=== PATIENT | male | born 1980 | race African-American/Black ===

== ENCOUNTER 2017-05-10 13:16 | Emergency (ER) | payer MEDICAID ==
[~2017-05-10] VITALS: Ht 172.7 cm; Wt 73.0 kg
[~2017-05-10 13:16] MED LIST: AMLO5TAB88; CARB200C; CARB200T PO; NASOI
[2017-05-10 18:24] VITALS: BP 134/93
== END 2017-05-10 18:30 | disposition home or self-care (01) ==
LOC: ER 13:47
DX: J06.9 Acute upper respiratory infection, unspecified (principal); I10 Essential (primary) hypertension; G40.909 Epilepsy, unspecified, not intractable, without status epilepticus; Z88.1 Allergy status to other antibiotic agents; Z88.5 Allergy status to narcotic agent; Z88.6 Allergy status to analgesic agent; Z79.899 Other long term (current) drug therapy
CPT/HCPCS: 87804; 99284

== ENCOUNTER 2018-05-29 08:15 | Emergency (ER) | payer MEDICAID, OTHER ==
[~2018-05-29] VITALS: Ht 172.7 cm; Wt 78.0 kg
[2018-05-29] MEDS ORDERED: ACETAMINOPHEN 325MG TABLET PO STA (08:54)
[2018-05-29 09:21] LABS: BASOPHILS % 0.8 % (0.0-2.0); EOSINOPHILS % 4.6 % (0.0-5.0); HEMATOCRIT. 42.4 % (42.0-52.0); HEMOGLOBIN. 14.4 g/dL (14.0-18.0); LYMPHOCYTES % 19.9 % (20.0-50.0); MEAN CORPUSCULAR HEMOGLOBIN 28.7 pg (28.0-32.0); MEAN CORPUSCULAR VOLUME 84.7 fL (80.0-94.0); MEAN PLATELET VOLUME 8.4 fl (7.4-10.4); MONOCYTES % 8.8 % (2.0-8.0); NEUTROPHILS % 65.9 % (40.0-76.0); PLATELET 224 x1000/uL (130-400); RED BLOOD CELL COUNT 5.01 mill/uL (4.7-6.1); RED CELL DISTRIBUTION WIDTH 13.5 % (11.6-14.6)
[2018-05-29 09:22] LABS: CHLORIDE 102 mEq/L (98-107)
[2018-05-29 09:46] LABS: CLARITY URINE CLEAR (CLEAR); COLOR URINE YELLOW (YELLOW); KETONES URINE NEGATIVE (NEGATIVE); LEUKOCYTE ESTERASE URINE NEGATIVE (NEGATIVE); NITRITE URINE NEGATIVE (NEGATIVE); OCCULT BLOOD URINE NEGATIVE (NEGATIVE); PROTEIN URINE NEGATIVE (NEGATIVE); SPECIFIC GRAVITY URINE 1.013 (1.005-1.030); UROBILINOGEN URINE 0.2 E.U./dL (0.2-1.0)
[2018-05-29 10:54] VITALS: BP 125/89
== END 2018-05-29 10:57 | disposition home or self-care (01) ==
LOC: ER 08:15
DX: R06.02 Shortness of breath (principal); I10 Essential (primary) hypertension; G40.909 Epilepsy, unspecified, not intractable, without status epilepticus; R94.31 Abnormal electrocardiogram [ECG] [EKG]; F79 Unspecified intellectual disabilities; Z88.5 Allergy status to narcotic agent; Z88.6 Allergy status to analgesic agent; Z88.3 Allergy status to other anti-infective agents
CPT/HCPCS: 36415; 71045; 83880; 84484; 93005; 99284

== ENCOUNTER 2018-09-30 20:28 | Emergency (ER) | payer MEDICAID ==
[~2018-09-30] VITALS: Ht 172.7 cm; Wt 71.0 kg
[2018-10-01] MEDS ORDERED: ACETAMINOPHEN 325MG TABLET PO ONE (02:30)
[2018-10-01 02:37] LABS: CLARITY URINE CLEAR (CLEAR); COLOR URINE YELLOW (YELLOW); KETONES URINE NEGATIVE (NEGATIVE); LEUKOCYTE ESTERASE URINE NEGATIVE (NEGATIVE); NITRITE URINE NEGATIVE (NEGATIVE); OCCULT BLOOD URINE NEGATIVE (NEGATIVE); PH URINE 7.5 (4.5-8.0); PROTEIN URINE NEGATIVE (NEGATIVE); SPECIFIC GRAVITY URINE 1.013 (1.005-1.030)
[2018-10-01 02:50] LABS: BASOPHILS % 0.3 % (0.0-2.0); EOSINOPHILS % 4.3 % (0.0-5.0); HEMATOCRIT. 40.2 % (42.0-52.0); HEMOGLOBIN. 13.5 g/dL (14.0-18.0); LYMPHOCYTES % 15.6 % (20.0-50.0); MEAN CORPUSCULAR HEMOGLOBIN 28.7 pg (28.0-32.0); MEAN CORPUSCULAR VOLUME 85.3 fL (80.0-94.0); MEAN PLATELET VOLUME 8.4 fl (7.4-10.4); MONOCYTES % 6.2 % (2.0-8.0); NEUTROPHILS % 73.6 % (40.0-76.0); PLATELET 219 x1000/uL (130-400); RED BLOOD CELL COUNT 4.71 mill/uL (4.7-6.1); RED CELL DISTRIBUTION WIDTH 13.1 % (11.6-14.6)
[2018-10-01 02:54] LABS: CHLORIDE 103 mEq/L (98-107)
[2018-10-01 03:02] LABS: CARBAMAZEPINE 12.3 ug/mL (4-12)
[2018-10-01 04:10] VITALS: BP 119/89
== END 2018-10-01 04:14 | disposition home or self-care (01) ==
LOC: ER 20:28
DX: R10.9 Unspecified abdominal pain (principal); R89.2 Abnormal level of other drugs, medicaments and biological substances in specimens from other organs, systems and tissues; I10 Essential (primary) hypertension; Z88.6 Allergy status to analgesic agent; Z88.5 Allergy status to narcotic agent; Z79.899 Other long term (current) drug therapy
CPT/HCPCS: 36415; 80156; 99283

== ENCOUNTER 2018-10-01 12:27 | Emergency (ER) | payer MEDICAID ==
[~2018-10-01] VITALS: Ht 180.3 cm; Wt 78.0 kg
[2018-10-01 13:14] VITALS: BP 154/104
== END 2018-10-01 16:15 | disposition left against medical advice (07) ==
LOC: ER 12:41
DX: R11.0 Nausea (principal); Z53.21 Procedure and treatment not carried out due to patient leaving prior to being seen by health care provider

== ENCOUNTER 2021-08-16 16:54 | Emergency (ER) | payer MEDICAID ==
[~2021-08-16] VITALS: Ht 172.7 cm; Wt 74.0 kg
[2021-08-16] MEDS ORDERED: OXYM30SP26 BOTHNSTRLS (18:49)
[2021-08-16 19:04] VITALS: BP 141/67
== END 2021-08-16 19:05 | disposition home or self-care (01) ==
LOC: ER 16:54
DX: J06.9 Acute upper respiratory infection, unspecified (principal); I10 Essential (primary) hypertension; Z98.890 Other specified postprocedural states; Z20.822 Contact with and (suspected) exposure to COVID-19
CPT/HCPCS: 82962; 87426; 87804; 99283

== ENCOUNTER 2022-07-30 11:37 | Emergency (ER) | payer MEDICAID, OTHER ==
[~2022-07-30] VITALS: Ht 172.7 cm; Wt 88.0 kg
[~2022-07-30 11:37] MED LIST changes: +OXYM30SP26 BOTHNSTRLS
[2022-07-30 11:43] VITALS: BP 162/91
[2022-07-30] MEDS ORDERED: TETRACAINE 0.5% OPHTH DROPS 4ML LEFTEYE ONE (12:30)
[2022-07-30] MEDS ORDERED: FLUORESCEIN SODIUM 1MG/STRIP LEFTEYE ONE (12:30)
[2022-07-30] MEDS ORDERED: FLUORESCEIN SODIUM 1MG/STRIP LEFTEYE NR (14:45)
[2022-07-30] MEDS ORDERED: TETRACAINE 0.5% OPHTH DROPS 4ML LEFTEYE NR (14:45)
[2022-07-30] MEDS ORDERED: CIPR3.5O LEFTEYE ×3 (16:33→16:38)
== END 2022-07-30 16:45 | disposition home or self-care (01) ==
LOC: ER 11:37
DX: H10.9 Unspecified conjunctivitis (principal)
CPT/HCPCS: 99283

== ENCOUNTER 2023-04-20 11:03 | Emergency (ER) | payer OTHER ==
[~2023-04-20] VITALS: Ht 170.2 cm; Wt 83.0 kg
[~2023-04-20 11:03] MED LIST changes: +CIPR3.5O LEFTEYE
[2023-04-20 11:19] VITALS: BP 149/96; PULSE 73; RESP 18; TEMP 98.3; O2SAT 98
[2023-04-20] MEDS ORDERED: BALANCED SALT IRRIG SOLN 15ML IR ONE (12:15)
[2023-04-20] MEDS ORDERED: FLUORESCEIN SODIUM 1MG/STRIP LEFTEYE ONE (12:15)
[2023-04-20] MEDS ORDERED: TETRACAINE 0.5% OPHTH DROPS 4ML LEFTEYE ONE (12:15)
[2023-04-21] MEDS ORDERED: IBUP-2030 MT (13:11)
[2023-04-21] MEDS ORDERED: OCUFLX EACHEYE (13:11)
[2023-04-21] MEDS ORDERED: VALA100044 MT (13:11)
== END 2023-04-20 16:39 | disposition left against medical advice (07) ==
LOC: ER 11:03
DX: L03.213 Periorbital cellulitis (principal); H10.32 Unspecified acute conjunctivitis, left eye; I10 Essential (primary) hypertension; Z88.5 Allergy status to narcotic agent; Z88.1 Allergy status to other antibiotic agents; Z88.8 Allergy status to other drugs, medicaments and biological substances; Z98.890 Other specified postprocedural states
CPT/HCPCS: 99281

== ENCOUNTER 2023-04-21 12:08 | Emergency (ER) | payer OTHER ==
[~2023-04-21] VITALS: Ht 172.7 cm; Wt 81.6 kg
[2023-04-21 12:15] VITALS: O2SAT 100
[2023-04-21] MEDS ORDERED: TETRACAINE 0.5% OPHTH DROPS 4ML BOTHEYE ONE (12:30)
[2023-04-21] MEDS ORDERED: FLUORESCEIN SODIUM 1MG/STRIP BOTHEYE ONE (12:30)
[2023-04-21] MEDS ORDERED: IBUP-2030 MT (13:11)
[2023-04-21] MEDS ORDERED: VALA100044 MT (13:11)
[2023-04-21] MEDS ORDERED: OCUFLX EACHEYE (13:11)
[2023-04-21 13:34] VITALS: BP 129/85; PULSE 84; RESP 19; TEMP 98.1
== END 2023-04-21 13:36 | disposition home or self-care (01) ==
LOC: ER 12:08
DX: H10.32 Unspecified acute conjunctivitis, left eye (principal); I10 Essential (primary) hypertension; Z88.1 Allergy status to other antibiotic agents; Z88.5 Allergy status to narcotic agent; Z88.6 Allergy status to analgesic agent; Z79.899 Other long term (current) drug therapy; Z86.59 Personal history of other mental and behavioral disorders
CPT/HCPCS: 99283; Z7610

== ENCOUNTER 2023-08-29 14:10 | Emergency (ER) | payer OTHER ==
[~2023-08-29] VITALS: Ht 167.6 cm; Wt 98.0 kg
[~2023-08-29 14:10] MED LIST changes: +IBUP-2030 MT; +OCUFLX EACHEYE; +VALA100044 MT
[2023-08-29 14:39] VITALS: O2SAT 99
[2023-08-29] MEDS ORDERED: OCUFLX RIGHTEYE (17:01)
[2023-08-29 19:05] VITALS: BP 133/70; PULSE 91; RESP 16; TEMP 98.8
== END 2023-08-29 22:37 | disposition home or self-care (01) ==
LOC: ER 14:10
DX: H10.32 Unspecified acute conjunctivitis, left eye (principal); I10 Essential (primary) hypertension; Z79.899 Other long term (current) drug therapy
CPT/HCPCS: 99283